=== PATIENT | female | born 2000 | race Caucasian/White ===

== ENCOUNTER 2022-11-27 16:17 | Outpatient (CLI) | payer OTHER ==
[~2022-11-27] VITALS: Ht 165.1 cm; Wt 74.1 kg
[2022-11-27 16:49] VITALS: BP 108/60
[2022-11-27] MEDS ORDERED: LR 1,000 ML IV ONE (17:20)
[2022-11-27] MEDS ORDERED: ONDANSETRON 4MG 2ML VIAL IV ONE (17:20)
[2022-11-27] MEDS ORDERED: ACETAMINOPHEN 500 MG TAB PO ONE (17:20)
[2022-11-27] MEDS ORDERED: PRENTAB9 PO (17:43)
[2022-11-27] MEDS ORDERED: ACET325C5 PO (17:44)
[2022-11-27] MEDS ORDERED: ONDA4TAB6 PO (17:44)
[2022-11-27] MEDS ORDERED: HOME MED LIST COMPLETE! XX SCH (17:45)
[2022-11-27 18:15] LABS: BASO % 0.1 % (0.0-1.0); EOS # 0.1 10^3/uL (0.0-0.5); EOS % 0.6 % (0.0-3.0); HEMATOCRIT 33.7 % (36.0-47.0); HEMOGLOBIN 10.8 g/dl (12.0-15.5); LYMPH # 0.5 10^3/uL (1.5-5.0); LYMPH % 3.8 % (24.0-44.0); MEAN CORPUSCULAR HEMOGLOBIN 25.5 pg (27.0-33.0); MEAN CORPUSCULAR VOLUME 79.7 fl (80.0-96.0); MONO # 1.1 10^3/uL (0.0-0.8); MONO % 8.1 % (2.0-8.0); NEUTROPHILS # 12.1 10^3/uL (1.5-8.5); NEUTROPHILS % 86.7 % (36.0-66.0); PLATELET COUNT, AUTOMATED 281 10^3/uL (150-450); RED BLOOD COUNT 4.23 10^6/uL (4.00-5.40)
[2022-11-27 19:51] LABS: ALBUMIN 3.2 G/DL (3.2-5.2); ALKALINE PHOSPHATASE 90 U/L (46-116); ALT/SGPT 9 U/L (7.0-40); AST/SGOT 16 U/L (<34); BILIRUBIN,TOTAL 0.3 MG/DL (0.3-1.2); BLOOD UREA NITROGEN < 5 MG/DL (9-23); CALCIUM LEVEL 8.9 MG/DL (8.5-10.1); CARBON DIOXIDE LEVEL 22 MMOL/L (20-31); CHLORIDE LEVEL 102 MMOL/L (98-107); CREATININE FOR GFR 0.44 MG/DL (0.55-1.30); GLOMERULAR FILTRATION RATE > 60.0 (>60); GLUCOSE, FASTING 81 MG/DL (60-100); POTASSIUM SERUM 3.8 MMOL/L (3.5-5.1); SODIUM LEVEL 137 MMOL/L (136-145); TOTAL PROTEIN 6.4 G/DL (5.7-8.2)
[2022-11-27 20:14] VITALS: BP 129/72
[2022-11-27 20:14] LABS: APPEARANCE, URINE MANUAL CLEAR (CLEAR); COLOR, URINE MANUAL LT YELLOW (YELLOW)
[2022-11-27 20:16] LABS: BILIRUBIN, URINE MANUAL NEGATIVE (NEGATIVE); BLOOD URINE MANUAL NEGATIVE (NEGATIVE); GLUCOSE, URINE (UA) MANUAL NEGATIVE (NEGATIVE); KETONE, URINE MANUAL NEGATIVE (NEGATIVE); LEUKOCYTE ESTERASE, URINE MAN NEGATIVE (NEGATIVE); NITRITE, URINE MANUAL NEGATIVE (NEGATIVE); PROTEIN, URINE MANUAL NEGATIVE (NEGATIVE); UROBILINOGEN, URINE MANUAL NORMAL (NORMAL)
== END 2022-11-27 20:10 | disposition home or self-care (01) ==
LOC: M LDO 16:17
PROVIDERS: ATTEND Obstetrics & Gynecology
DX: O98.513 Other viral diseases complicating pregnancy, third trimester (principal); U07.1 COVID-19; Z3A.30 30 weeks gestation of pregnancy; Z88.2 Allergy status to sulfonamides
CPT/HCPCS: 59025; 80053; 81002; 85025; 87086; 87486; 87581; 87633; 87798; 96361; 96374; G0463; J2405

== ENCOUNTER 2023-01-22 01:03 | Outpatient (CLI) | payer OTHER ==
[~2023-01-22] VITALS: Ht 165.1 cm; Wt 77.9 kg
[~2023-01-22 01:03] MED LIST: ACET325C5 PO; ONDA4TAB6 PO; PRENTAB9 PO
[2023-01-22 01:21] VITALS: BP 136/85
[2023-01-22] MEDS ORDERED: HOME MED LIST COMPLETE! XX SCH (01:40)
[2023-01-22 03:22] VITALS: BP 134/84
== END 2023-01-22 03:57 | disposition home or self-care (01) ==
LOC: M LDO 01:03
PROVIDERS: ATTEND Obstetrics & Gynecology
DX: O47.1 False labor at or after 37 completed weeks of gestation (principal); Z3A.39 39 weeks gestation of pregnancy; Z86.16 Personal history of COVID-19; Z88.2 Allergy status to sulfonamides
CPT/HCPCS: 59025; G0463

== ENCOUNTER 2023-01-24 02:50 | Inpatient (IN) | payer OTHER ==
[~2023-01-24] VITALS: Ht 165.1 cm; Wt 78.0 kg
[2023-01-24] VITALS (28 sets, daily range): BP systolic 116–167; BP diastolic 57–94
[2023-01-24] MEDS ORDERED: OXYTOCIN 30UNITS IN 0.9% NaCl 500ML IV BAG As Ordered ONE (02:59)
[2023-01-24] MEDS ORDERED: LACTATED RINGER'S 1000 ML IV STA (03:07)
[2023-01-24] MEDS ORDERED: METHYLERGONOVINE MALEATE 0.2MG/ML 1ML VIAL IM PRN (03:10)
[2023-01-24] MEDS ORDERED: OXYTOCIN DRIP 30 UNITS in IV 1 EA IV PRN ×6 (03:10)
[2023-01-24] MEDS ORDERED: TRANEXAMIC ACID INJection 1,000 MG in NS 100 ML IV PRN (03:10)
[2023-01-24] MEDS ORDERED: OXYTOCIN INJ 10UNITS/ML 1ML VIAL IM PRN (03:10)
[2023-01-24] MEDS ORDERED: LIDOCAINE 1% MDV 20ML VIAL INFIL PRN (03:10)
[2023-01-24] MEDS ORDERED: VITA100093 PO (03:33)
[2023-01-24] MEDS ORDERED: ASCO500C3 PO (03:33)
[2023-01-24] MEDS ORDERED: HOME MED LIST COMPLETE! XX SCH (03:35)
[2023-01-24 03:40] LABS: HEMOGLOBIN 11.2 g/dl (12.0-15.5); MEAN CORPUSCULAR HEMOGLOBIN 23.4 pg (27.0-33.0); MEAN CORPUSCULAR HGB CONC 31.1 g/dl (32.0-36.5); MEAN CORPUSCULAR VOLUME 75.2 fl (80.0-96.0); PLATELET COUNT, AUTOMATED 285 10^3/uL (150-450); RED BLOOD COUNT 4.79 10^6/uL (4.00-5.40); WHITE BLOOD COUNT 14.5 10^3/uL (4.0-10.0)
[2023-01-24] MEDS ORDERED: ONDANSETRON 4MG 2ML VIAL IV PRN (04:00)
[2023-01-24] MEDS ORDERED: EPIDURAL/PCA KEYS XX PRN (04:00)
[2023-01-24] MEDS ORDERED: FENTANYL/ROPIVACAINE/NACL BAG 100 ML EPIDURAL SCH (04:00)
[2023-01-24] MEDS ORDERED: LR 500 ML IV PRN (04:00)
[2023-01-24] MEDS ORDERED: diphenhydrAMINE 50MG/ML VIAL IV PRN (04:00)
[2023-01-24] MEDS ORDERED: NALOXONE INJ 0.4MG/1ML VIAL IV PRN (04:00)
[2023-01-24] MEDS ORDERED: ePHEDrine SULFATE 25 MG/5 ML(5MG/ML) SYRINGE IVP PRN (04:00)
[2023-01-24] MEDS: LR 1,000 ML IV SCH ×3 (04:21→19:10)
[2023-01-24] MEDS ORDERED: DOCUSATE SODIUM 100MG CAPSULE PO PRN (05:35)
[2023-01-24] MEDS ORDERED: IBUPROFEN 600MG TAB PO PRN (05:35)
[2023-01-24] MEDS ORDERED: METHYLERGONOVINE MALEATE 0.2 MG TAB PO PRN (05:35)
[2023-01-24] MEDS ORDERED: OXYTOCIN DRIP 30 UNITS in IV 1 EA IV SCH (05:35)
[2023-01-24] MEDS ORDERED: ACETAMINOPHEN TAB 650MG DOSE (2X325MG) PO PRN (05:35)
[2023-01-24] MEDS ORDERED: DIBUCAINE 1% OINTMENT 30GM TOP PRN (05:35)
[2023-01-24] MEDS ORDERED: RHOGAM 300MCG (1500IU) INJ IM SCH (05:35)
[2023-01-24] MEDS: ACETAMINOPHEN 500 MG TAB PO PRN ×2 (05:57→15:09)
[2023-01-24] MEDS: IBUPROFEN 800 MG TAB PO PRN (07:10)
[2023-01-24] MEDS: PRENATAL VITAMINS CHEWABLE TABLET PO SCH (08:27)
[2023-01-25] MEDS: IBUPROFEN 800 MG TAB PO PRN ×2 (02:58→13:18)
[2023-01-25 05:24] VITALS: BP 127/64
[2023-01-25 07:51] LABS: MEAN CORPUSCULAR HEMOGLOBIN 23.4 pg (27.0-33.0); MEAN CORPUSCULAR VOLUME 77.9 fl (80.0-96.0); PLATELET COUNT, AUTOMATED 203 10^3/uL (150-450); RED BLOOD COUNT 3.85 10^6/uL (4.00-5.40); WHITE BLOOD COUNT 12.9 10^3/uL (4.0-10.0)
[2023-01-25] MEDS: PRENATAL VITAMINS CHEWABLE TABLET PO SCH (08:45)
[2023-01-25] MEDS: ACETAMINOPHEN 500 MG TAB PO PRN (08:46)
[2023-01-26] MEDS ORDERED: MEASLES,MUMPS,RUBELLA VACCINE INJ (MMR-II) SC.IMMUN ONE (09:00)
== END 2023-01-25 14:55 | disposition home or self-care (01) | DRG 807 ==
LOC: M LDO 02:50 → M LDI 02:57 → M OBS 07:42
PROVIDERS: ADMIT Obstetrics & Gynecology; ATTEND Obstetrics & Gynecology
PROC: 10E0XZZ Delivery of Products of Conception, External Approach (ICD-10-PCS; principal; 2023-01-24)
PROC: 10907ZC Drainage of Amniotic Fluid, Therapeutic from Products of Conception, Via Natural or Artificial Opening (ICD-10-PCS; 2023-01-24)
DX: O69.81X0 Labor and delivery complicated by cord around neck, without compression, not applicable or unspecified (principal); Z37.0 Single live birth; Z3A.39 39 weeks gestation of pregnancy